=== PATIENT | male | born 1980 | race Caucasian/White ===

== ENCOUNTER 2016-11-09 20:30 | Emergency (ER) | payer OTHER ==
[~2016-11-09] VITALS: Ht 177.8 cm; Wt 86.2 kg
[~2016-11-09 20:30] MED LIST: LIPITOR20 MG; METHADONE HCL 110 M1 PO; XANAX1 MG; XANAX1 MG PO
[2016-11-09] MEDS ORDERED: CLONAZEPAM 1 MG1 M1 PO (20:39)
== END 2016-11-09 21:45 | disposition home or self-care (01) ==
LOC: ER 20:30
DX: R41.82 Altered mental status, unspecified (principal); F41.9 Anxiety disorder, unspecified; G89.29 Other chronic pain; M54.9 Dorsalgia, unspecified; J45.909 Unspecified asthma, uncomplicated; E78.00 Pure hypercholesterolemia, unspecified; E11.9 Type 2 diabetes mellitus without complications; F17.210 Nicotine dependence, cigarettes, uncomplicated; F10.99 Alcohol use, unspecified with unspecified alcohol-induced disorder; Z91.018 Allergy to other foods; Z88.0 Allergy status to penicillin